=== PATIENT | female | born 1970 ===

== ENCOUNTER 2021-02-28 07:32 | Outpatient (CLI) | payer OTHER | END 2021-02-28 07:37 | disposition home or self-care (01) | LOC: SONOGRAMA 07:32 | PROVIDERS: ATTEND Pathology Anatomic Pathology & Clinical Pathology | DX: E04.1 Nontoxic single thyroid nodule (principal) ==

== ENCOUNTER 2023-01-25 09:26 | Outpatient (CLI) | payer OTHER | END 2023-01-25 09:34 | disposition home or self-care (01) | LOC: SONOGRAMA 09:26 | PROVIDERS: ATTEND Pathology Anatomic Pathology & Clinical Pathology | DX: D34 Benign neoplasm of thyroid gland (principal); E04.9 Nontoxic goiter, unspecified ==